=== PATIENT | female | born 1995 | race Caucasian/White ===

== ENCOUNTER 2020-10-21 20:34 | Emergency (ER) | payer MEDICAID ==
[~2020-10-21] VITALS: Ht 160 cm; Wt 47.5 kg
[2020-10-21 21:55] LABS: BASOPHILS # (AUTO) 0.1 X10'3 (0-0.2); BASOPHILS % (AUTO) 0.9 % (0-1); EOSINOPHILS # (AUTO) 0.1 X10'3 (0-0.9); EOSINOPHILS % (AUTO) 0.8 % (0-6); HEMATOCRIT 40.8 % (35.0-45.0); HEMOGLOBIN 14.1 g/dl (12.0-16.0); LYMPHOCYTES # (AUTO) 2.6 X10'3 (1.1-4.8); LYMPHOCYTES % (AUTO) 28.1 % (21-51); MEAN CORPUSCULAR HEMOGLOBIN 31.6 PG (27.0-31.0); MEAN CORPUSCULAR HGB CONC 34.6 g/dL (33.0-36.5); MEAN CORPUSCULAR VOLUME 91.1 FL (78-98); MEAN PLATELET VOLUME 8.2 FL (7.4-10.4); MONOCYTES # (AUTO) 0.5 X10'3 (0-0.9); MONOCYTES % (AUTO) 5.7 % (2-12); NEUTROPHILS # (AUTO) 5.9 X10'3 (1.8-7.7); NEUTROPHILS % (AUTO) 64.5 % (42-75); PLATELET COUNT 363 X10'3 (140-440); RED BLOOD COUNT 4.48 X10'6 (4.20-5.60); RED CELL DISTRIBUTION WIDTH 12.7 % (11.5-14.5); WHITE BLOOD COUNT 9.1 X10'3 (4.5-11.0)
[2020-10-21 22:02] LABS: URINE HCG NEGATIVE (NEG)
[2020-10-21 22:20] LABS: ALANINE AMINOTRANSFERASE 26 U/L (12-78); ALBUMIN 4.6 G/DL (3.4-5.0); ALBUMIN/GLOBULIN RATIO 1.4 (1.1-1.5); ALKALINE PHOSPHATASE 57 IU/L (46-116); ANION GAP 13 (8-16); ASPARTATE AMINO TRANSFERASE 21 U/L (10-37); BILIRUBIN,TOTAL 0.2 MG/DL (0.1-1.0); BLOOD UREA NITROGEN 9 MG/DL (7-18); BUN/CREATININE RATIO 14.3 (6.6-38.0); CALCIUM 8.5 MG/DL (8.5-10.1); CHLORIDE 112 MMOL/L (99-107); CREATININE 0.63 MG/DL (0.40-0.90); GLUCOSE 89 MG/DL (70-104); POTASSIUM 3.5 MMOL/L (3.5-5.1); SODIUM 148 MMOL/L (135-145); TOTAL CARBON DIOXIDE 23.1 MMOL/L (24-32); eGFR > 90 ML/MIN
[2020-10-21 22:21] LABS: URINE AMPHETAMINE SCREEN NEGATIVE (Neg); URINE BARBITUATE SCREEN NEGATIVE (Neg); URINE BENZODIAZEPINES SCREEN NEGATIVE (Neg); URINE CANNABINOID SCREEN POSITIVE (Neg); URINE COCAINE SCREEN NEGATIVE (Neg); URINE METHADONE SCREEN NEGATIVE (Neg); URINE OPIATE SCREEN NEGATIVE (Neg); URINE PHENCYCLIDINE SCREEN NEGATIVE (Neg)
[2020-10-21 22:24] LABS: CLARITY,URINE CLEAR (Clear); COLOR,URINE YELLOW (Yellow); GLUCOSE, URINE NEGATIVE (Neg); KETONES,URINE NEGATIVE (Neg); LEUKOCYTE ESTERASE ,URINE NEGATIVE (Neg); NITRITES, URINE NEGATIVE (Neg); OCCULT BLOOD,URINE NEGATIVE (Neg); PROTEIN,URINE NEGATIVE (Neg); UROBILINOGEN,URINE 0.2 E.U/dL (0.2-1.0)
[2020-10-21 22:26] LABS: ETHANOL 0.185 GM/DL (0.0-0.010)
[2020-10-21 22:27] LABS: UA COLLECTION TYPE CLN CATCH MIDSTREAM
--- NOTE | 2020-10-21 22:40 | NUR ---
PTS UNCLE AND GRANDFATHER WITH HER AND ARE BOTH HELPFUL AND SUPPORTIVE.
[2020-10-21] MEDS ORDERED: LORazepam 1 MG tablet PO PRN (23:00)
--- NOTE | 2020-10-21 23:17 | NUR ---
pt brought over to overflow bed 23 with uncle and grandfather with to see where pt will be for the night. both are very supportive of pt and her being here at least for tonight.
--- NOTE | 2020-10-21 23:17 | NUR ---
during 1:1 bedside assessment, pt endorses suicidal ideation with plan to drive [place] the [place]. pt denies any self harming and states she has recently driven her car to [place] multiple times thinking of driving off the bridge. pt reports having a therapist for years and her mother is a big support person for her. Mother is currently out of town and will be back tomorrow. uncle or grandfather will be back in the morning to await [facility] evaluation. pt states she is currently getting her major in psychology and has been lying for awhile to her family and therapist about being suicidal as she knew she would "end up in a facility or on a hold." pt has never been admitted or on a hold before. pt was anxious and tearful, shaky during assessment and this rn requested a prn from liss grullon. received ativan 1mg po q4h as needed for anxiety. pt is now more calm and laying in bed. pt reports dx of bipolar with depression and anxiety and takes latuda and buspar. reports being on latuda "for awhile" and was recently started on buspar "about 2 weeks ago." pt was unaware that suicidal ideation can worsen when a new medication is started. pt denies SH/HI/AVH. pt changed into green scrubs without issue. family is supportive of her being here.
[2020-10-21] MEDS ORDERED: BUSP5TAB3 PO (23:26)
[2020-10-21] MEDS ORDERED: LURA20TA PO (23:26)
--- NOTE | 2020-10-21 23:26 | NUR ---
pt uncle Gordon Chua [phone] pt grandfather Enrique Chua [phone] (home), or [phone] (cell)
--- NOTE | 2020-10-22 00:04 | NUR ---
PACKET FAXED TO [facility]
--- NOTE | 2020-10-22 00:25 | NUR ---
pt appears to be sleeping
--- NOTE | 2020-10-22 02:43 | NUR ---
pt appears to be sleeping
--- NOTE | 2020-10-22 04:43 | NUR ---
pt appears to be sleeping
[2020-10-22 05:45] VITALS: BP 104/65
[2020-10-22] MEDS ORDERED: lurasidone 20mg tablet PO SCH (21:00)
[2020-10-22] MEDS ORDERED: busPIRone 5mg tablet PO SCH (21:00)
== END 2020-10-22 10:20 ==
LOC: ER 20:34
DX: R45.851 Suicidal ideations (principal); Z20.822 Contact with and (suspected) exposure to COVID-19; F10.129 Alcohol abuse with intoxication, unspecified; F31.9 Bipolar disorder, unspecified; F19.90 Other psychoactive substance use, unspecified, uncomplicated; Z79.899 Other long term (current) drug therapy; Y90.0 Blood alcohol level of less than 20 mg/100 ml
CPT/HCPCS: 36415; 80053; 80305; 80320; 81003; 81025; 84443; 85025; 87635; 99285; C9803